=== PATIENT | female | born 1995 | race Asian ===

== ENCOUNTER 2018-02-03 08:57 | Inpatient (IN) | payer SELFPAY ==
[~2018-02-03] VITALS: Ht 170.2 cm; Wt 77.1 kg
[2018-02-03] MEDS ORDERED: OXYTOCIN/0.9 % SODIUM CHLORIDE 1,000 ML IV SCH (09:39)
[2018-02-03] MEDS ORDERED: TERBUTALINE SULFATE 1 MG/ML VIAL SUBCUT ONE (09:45)
[2018-02-03] MEDS ORDERED: NALBUPHINE HCL 10 MG/ML AMP IVP PRN (09:45)
[2018-02-03] MEDS ORDERED: DINOPROSTONE 10 MG SUPP VG ONE (09:45)
[2018-02-03 10:17] LABS: MEAN CORPUSCULAR HEMOGLOBIN 31 pg (27-31); MEAN CORPUSCULAR HGB CONC 33 % (32-36); MEAN CORPUSCULAR VOLUME 94 fL (79.0-98.0)
[2018-02-03 10:25] LABS: BASOPHILS % (AUTO) 0.3 % (0.0-2.0); EOSINOPHILS # (AUTO) 0.1 K/uL (0.0-0.4); EOSINOPHILS % (AUTO) 0.8 % (0.0-4.0); HEMATOCRIT 37.5 % (36-48); HEMOGLOBIN 12.5 g/dL (12.0-16.0); LYMPHOCYTES # (AUTO) 1.4 K/uL (1.0-5.5); LYMPHOCYTES % (AUTO) 20.6 % (20.5-51.5); MONOCYTES # (AUTO) 0.4 K/uL (0.0-1.0); MONOCYTES % (AUTO) 6.1 % (1.7-9.3); NEUTROPHILS # (AUTO) 4.9 K/uL (1.8-7.7); NEUTROPHILS % (AUTO) 72.2 % (40.0-70.0); RED BLOOD CELL COUNT(AUTO) 4.01 MIL/uL (4.2-6.2); RED CELL DISTRIBUTION WIDTH 12.4 % (9.0-15.0); WHITE BLOOD COUNT (AUTO) 6.8 K/uL (4.5-11.0)
[2018-02-03 10:26] LABS: PLATELET COUNT (AUTO) 187 K/uL (130-430)
[2018-02-03] MEDS: LR 1,000 ML IV SCH ×3 (10:50→20:56)
[2018-02-03] MEDS ORDERED: ROPIVACAINE 0.2% 100 ML ONE ×2 (12:42→20:13)
[2018-02-03] MEDS ORDERED: fentaNYL CITRATE/PF 100 MCG/2 ML AMP ONE (12:44)
[2018-02-03 17:33] VITALS: BP_SYST 112
[2018-02-03] MEDS ORDERED: CEFAZOLIN 2 GM IVPB PREMIX 50 ML IV ONE (23:30)
[2018-02-03] MEDS ORDERED: OXYTOCIN 10 UNIT/ML VIAL IV ONE (23:45)
[2018-02-03] MEDS ORDERED: LR 1,000 ML IV.SOLN IV ONE (23:45)
[2018-02-03] MEDS ORDERED: KETOROLAC TROMETHAMINE 30 MG VIAL IVP ONE (23:45)
[2018-02-03] MEDS ORDERED: OXYTOCIN/0.9 % SODIUM CHLORIDE 20 UNITS/1,000 ML BAG IV ONE (23:45)
[2018-02-03] MEDS ORDERED: MIDAZOLAM HCL 5 MG/5 ML VIAL IVP ONE (23:45)
[2018-02-03] MEDS ORDERED: BUPIVACAINE /PF 0.5% 30 ML VIAL INJ ONE (23:45)
[2018-02-03] MEDS ORDERED: NS IRRIG SOLN 1000 ML IR ONE (23:45)
[2018-02-03] MEDS ORDERED: MORPHINE SULFATE 10MG/10ML PF AMP EP ONE (23:45)
[2018-02-03] MEDS ORDERED: LIDOCAINE PF 2%, 40 MG/2 ML AMP INJ ONE (23:45)
[2018-02-03] MEDS ORDERED: fentaNYL CITRATE/PF 100 MCG/2 ML AMP IVP ONE (23:45)
[2018-02-04] MEDS ORDERED: ONDANSETRON HCL 4 MG/2 ML VIAL IVP PRN ×2 (00:30)
[2018-02-04] MEDS ORDERED: NALOXONE HCL 0.4 MG/ML AMP (NARCAN) IVP PRN ×2 (00:30)
[2018-02-04] MEDS ORDERED: KETOROLAC TROMETHAMINE 60 MG/2 ML VIAL IM PRN (00:30)
[2018-02-04] MEDS ORDERED: DIPHENHYDRAMINE INJ 50 MG/ML VIAL IVP PRN (00:30)
[2018-02-04] MEDS ORDERED: NALBUPHINE HCL 10 MG/ML AMP IVP PRN (00:30)
[2018-02-04] MEDS ORDERED: FENT2mCg/mL-ROPIVA0.2%/NS EPID 150 ML EP SCH (00:30)
[2018-02-04] MEDS ORDERED: MORPHINE SULFATE 10MG/10ML PF AMP EP SCH (00:30)
[2018-02-04] MEDS ORDERED: fentaNYL CITRATE/PF 100 MCG/2 ML AMP IVP PRN ×2 (00:30)
[2018-02-04] MEDS ORDERED: LR 500 ML IV ONE (00:45)
[2018-02-04 01:08] VITALS: BP_SYST 112
[2018-02-04] MEDS ORDERED: ANUSOL 1 EA SUPP.RECT (PREPARATION H) RC PRN (01:15)
[2018-02-04] MEDS ORDERED: MEASLES,MUMPS&RUBELLA VACC/PF 12500 UNIT/0.5 ML VIAL SUBQ PRN (01:15)
[2018-02-04] MEDS ORDERED: LANOLIN 7 GM OINT. TP PRN (01:15)
[2018-02-04] MEDS ORDERED: HYDROcodone/ACETAMIN 5-325 MG TAB (NORCO/ VICODIN) PO PRN (01:15)
[2018-02-04] MEDS ORDERED: fentaNYL CITRATE/PF 100 MCG/2 ML AMP ONE (01:32)
[2018-02-04] MEDS ORDERED: OXYTOCIN/0.9 % SODIUM CHLORIDE 1,000 ML IV ONE (01:45)
[2018-02-04] MEDS ORDERED: OXYTOCIN 10 UNIT/ML VIAL ONE (01:50)
[2018-02-04] MEDS: CEFAZOLIN 1 GM IVPB PREMIX 50 ML IV SCH ×3 (05:54→19:23)
[2018-02-04] MEDS: SIMETHICONE 80 MG TAB.CHEW PO PRN ×2 (05:57→22:16)
[2018-02-04] MEDS ORDERED: KETOROLAC TROMETHAMINE 30 MG VIAL ONE (07:04)
[2018-02-04 09:09] LABS: BASOPHILS % (AUTO) 0.3 % (0.0-2.0); EOSINOPHILS % (AUTO) 0.4 % (0.0-4.0); HEMATOCRIT 32.2 % (36-48); HEMOGLOBIN 10.3 g/dL (12.0-16.0); LYMPHOCYTES # (AUTO) 1.4 K/uL (1.0-5.5); LYMPHOCYTES % (AUTO) 14.4 % (20.5-51.5); MEAN CORPUSCULAR HEMOGLOBIN 30 pg (27-31); MEAN CORPUSCULAR HGB CONC 32 % (32-36); MEAN CORPUSCULAR VOLUME 94 fL (79.0-98.0); MONOCYTES # (AUTO) 0.4 K/uL (0.0-1.0); MONOCYTES % (AUTO) 4.4 % (1.7-9.3); NEUTROPHILS # (AUTO) 7.6 K/uL (1.8-7.7); NEUTROPHILS % (AUTO) 80.5 % (40.0-70.0); PLATELET COUNT (AUTO) 154 K/uL (130-430); RED BLOOD CELL COUNT(AUTO) 3.42 MIL/uL (4.2-6.2); RED CELL DISTRIBUTION WIDTH 12.1 % (9.0-15.0); WHITE BLOOD COUNT (AUTO) 9.4 K/uL (4.5-11.0)
[2018-02-04] MEDS: KETOROLAC TROMETHAMINE 30 MG VIAL IVP SCH ×2 (12:34→18:00)
[2018-02-04] MEDS: LR 1,000 ML IV SCH (18:00)
[2018-02-04] MEDS ORDERED: TEMAZEPAM 15 MG CAPSULE PO PRN (21:00)
[2018-02-04] MEDS: DOCUSATE SODIUM 100 MG CAPSULE PO PRN (22:16)
[2018-02-04] MEDS: OXYCODONE/ACETAMINOPHEN 5-325 TABLET PO PRN (22:17)
[2018-02-05] MEDS: OXYCODONE/ACETAMINOPHEN 5-325 TABLET PO PRN ×4 (05:59→23:22)
[2018-02-05] MEDS: IBUPROFEN 600 MG TABLET PO SCH ×4 (06:08→23:34)
[2018-02-05 06:52] LABS: BASOPHILS % (AUTO) 0.2 % (0.0-2.0); EOSINOPHILS # (AUTO) 0.1 K/uL (0.0-0.4); EOSINOPHILS % (AUTO) 0.6 % (0.0-4.0); HEMATOCRIT 30.2 % (36-48); HEMOGLOBIN 10.1 g/dL (12.0-16.0); LYMPHOCYTES % (AUTO) 10.6 % (20.5-51.5); MEAN CORPUSCULAR HEMOGLOBIN 32 pg (27-31); MEAN CORPUSCULAR HGB CONC 34 % (32-36); MEAN CORPUSCULAR VOLUME 95 fL (79.0-98.0); MONOCYTES # (AUTO) 0.5 K/uL (0.0-1.0); MONOCYTES % (AUTO) 5.4 % (1.7-9.3); NEUTROPHILS # (AUTO) 8.3 K/uL (1.8-7.7); NEUTROPHILS % (AUTO) 83.2 % (40.0-70.0); PLATELET COUNT (AUTO) 152 K/uL (130-430); RED CELL DISTRIBUTION WIDTH 12.3 % (9.0-15.0); WHITE BLOOD COUNT (AUTO) 9.9 K/uL (4.5-11.0)
[2018-02-05] MEDS ORDERED: BUPIVACAINE /PF 0.5% 30 ML VIAL INJ ONE (11:22)
[2018-02-05] MEDS: DOCUSATE SODIUM 100 MG CAPSULE PO PRN ×2 (12:20→23:24)
[2018-02-06] MEDS: OXYCODONE/ACETAMINOPHEN 5-325 TABLET PO PRN (06:12)
[2018-02-06] MEDS: IBUPROFEN 600 MG TABLET PO SCH (06:12)
== END 2018-02-06 10:40 | disposition home or self-care (01) | DRG 787 ==
LOC: SPU 08:57
PROVIDERS: ADMIT Obstetrics & Gynecology; ATTEND Obstetrics & Gynecology
PROC: 10D00Z1 Extraction of Products of Conception, Low, Open Approach (ICD-10-PCS; principal; 2018-02-03 23:45)
DX: O76 Abnormality in fetal heart rate and rhythm complicating labor and delivery (principal); O41.03X0 Oligohydramnios, third trimester, not applicable or unspecified; Z3A.39 39 weeks gestation of pregnancy; Z37.0 Single live birth
CPT/HCPCS: 36415; 85025; 86592; 86886; 86900; 86901; 94760; J0690; J1885; J2001; J2250; J2274; J2300; J2590; J2795; J3010; J3490; J7120